=== PATIENT | female | born 1955 | race Caucasian/White ===

== ENCOUNTER 2018-07-13 15:32 | Emergency (ER) | payer MEDICARE ==
[~2018-07-13] VITALS: Ht 157.5 cm; Wt 90.9 kg
[2018-07-13 15:58] LABS: BASOPHILS # (AUTO) 0.1 X10'3 (0-0.2); BASOPHILS % (AUTO) 1.4 % (0-1); EOSINOPHILS # (AUTO) 0.2 X10'3 (0-0.9); EOSINOPHILS % (AUTO) 2.8 % (0-6); HEMATOCRIT 40.7 % (35.0-45.0); HEMOGLOBIN 13.4 g/dl (12.0-16.0); LYMPHOCYTES # (AUTO) 1.5 X10'3 (1.1-4.8); LYMPHOCYTES % (AUTO) 24.1 % (21-51); MEAN CORPUSCULAR HEMOGLOBIN 30.5 PG (27.0-31.0); MEAN CORPUSCULAR VOLUME 92.3 FL (78-98); MEAN PLATELET VOLUME 10.2 FL (7.4-10.4); MONOCYTES # (AUTO) 0.5 X10'3 (0-0.9); MONOCYTES % (AUTO) 7.6 % (2-12); NEUTROPHILS # (AUTO) 3.9 X10'3 (1.8-7.7); NEUTROPHILS % (AUTO) 64.1 % (42-75); PLATELET COUNT 223 X10'3 (140-440); RED CELL DISTRIBUTION WIDTH 14.6 % (11.5-14.5); WHITE BLOOD COUNT 6.1 X10'3 (4.5-11.0)
[2018-07-13 16:06] LABS: INR 1.1 INR; PARTIAL THROMBOPLASTIN TIME 32 SECONDS (22-32); PROTHROMBIN TIME 11.2 SECONDS (9.0-12.0)
[2018-07-13 16:12] LABS: ALANINE AMINOTRANSFERASE 22 U/L (12-78); ALBUMIN 3.8 G/DL (3.4-5.0); ALKALINE PHOSPHATASE 83 IU/L (46-116); ANION GAP 11 (8-16); ASPARTATE AMINO TRANSFERASE 19 U/L (10-37); BILIRUBIN,TOTAL 0.4 MG/DL (0.1-1.0); BLOOD UREA NITROGEN 13 MG/DL (7-18); BUN/CREATININE RATIO 19.1 (6.6-38.0); CALCIUM 9.1 MG/DL (8.5-10.1); CHLORIDE 102 MMOL/L (99-107); CREATININE 0.68 MG/DL (0.40-0.90); GLUCOSE 109 MG/DL (70-104); POTASSIUM 3.6 MMOL/L (3.5-5.1); SODIUM 142 MMOL/L (135-145); TOTAL CARBON DIOXIDE 29.1 MMOL/L (24-32); TOTAL PROTEIN 7.7 G/DL (6.4-8.2); eGFR 87 ML/MIN
[2018-07-13] MEDS ORDERED: fentaNYL/PF 50MCG/1 ML 2ML syringe IV ONE (17:55)
[2018-07-13] MEDS ORDERED: etomidate 2mg/ml inj. IV ONE (17:55)
[2018-07-13] MEDS ORDERED: ondansetron/PF 4mg/2ml inj IV ONE (17:55)
[2018-07-13] MEDS ORDERED: heparin 10,000 units/1 ML INJ IV ONE (17:55)
[2018-07-13 18:10] LABS: D-DIMER 0.27 MG/L FEU (0-0.50)
[2018-07-13 18:35] VITALS: BP 141/73
== END 2018-07-13 19:19 | disposition home or self-care (01) ==
LOC: ER 15:32
DX: I48.91 Unspecified atrial fibrillation (principal); R00.2 Palpitations; I10 Essential (primary) hypertension; Z88.0 Allergy status to penicillin
CPT/HCPCS: 36415; 71046; 80053; 84439; 84443; 84484; 85025; 85379; 85610; 85730; 92960; 93005; 94760; 96374; 99152; 99285; J1644; J2405; J3010; J3490

== ENCOUNTER 2019-07-17 13:25 | Day surgery (SDC) | payer MEDICARE ==
[2019-07-12 13:47] LABS: BASOPHILS % (AUTO) 0.8 % (0-1); EOSINOPHILS # (AUTO) 0.2 X10'3 (0-0.9); EOSINOPHILS % (AUTO) 3.2 % (0-6); HEMATOCRIT 40.1 % (35.0-45.0); HEMOGLOBIN 13.3 g/dl (12.0-16.0); LYMPHOCYTES # (AUTO) 1.4 X10'3 (1.1-4.8); LYMPHOCYTES % (AUTO) 27.8 % (21-51); MEAN CORPUSCULAR HEMOGLOBIN 30.5 PG (27.0-31.0); MEAN CORPUSCULAR HGB CONC 33.1 g/dL (33.0-36.5); MEAN CORPUSCULAR VOLUME 92.1 FL (78-98); MEAN PLATELET VOLUME 9.9 FL (7.4-10.4); MONOCYTES # (AUTO) 0.5 X10'3 (0-0.9); NEUTROPHILS % (AUTO) 59.2 % (42-75); PLATELET COUNT 201 X10'3 (140-440); RED BLOOD COUNT 4.35 X10'6 (4.20-5.60); RED CELL DISTRIBUTION WIDTH 15.3 % (11.5-14.5)
[2019-07-12 13:55] LABS: ALBUMIN 3.7 G/DL (3.4-5.0); ANION GAP 6 (8-16); BLOOD UREA NITROGEN 17 MG/DL (7-18); BUN/CREATININE RATIO 29.3 (6.6-38.0); CALCIUM 9.4 MG/DL (8.5-10.1); CHLORIDE 107 MMOL/L (99-107); CREATININE 0.58 MG/DL (0.40-0.90); GLUCOSE 98 MG/DL (70-104); SODIUM 145 MMOL/L (135-145); TOTAL CARBON DIOXIDE 31.6 MMOL/L (24-32); eGFR > 90 ML/MIN
[2019-07-12 14:01] LABS: PARTIAL THROMBOPLASTIN TIME 29 SECONDS (22-32)
[~2019-07-17] VITALS: Ht 157.5 cm; Wt 90.3 kg
[2019-07-17] VITALS (11 sets, daily range): BP systolic 132–183; BP diastolic 64–104
[2019-07-17] MEDS ORDERED: MIDAZolam 5mg/ml 2ml vial IV ONE (13:45)
[2019-07-17] MEDS ORDERED: normal saline 1000ml 1,000 ML IV SCH (13:45)
[2019-07-17] MEDS ORDERED: fentaNYL/PF 50MCG/1 ML 2ML syringe IV ONE (13:45)
[2019-07-17] MEDS ORDERED: FLEC100T2 PO (14:47)
[2019-07-17] MEDS ORDERED: VIT1CAPS9 PO (14:47)
[2019-07-17] MEDS ORDERED: [UNRECOGNIZED DRUG - OTHER] PO (14:47)
[2019-07-17] MEDS ORDERED: APIX5TAB3 PO (14:47)
[2019-07-17] MEDS ORDERED: METO100T14 PO (14:47)
[2019-07-17] MEDS ORDERED: FURO-150 PO (14:47)
[2019-07-17] MEDS ORDERED: OLME40TA13 PO (14:47)
== END 2019-07-17 18:45 | disposition home or self-care (01) ==
LOC: SSTAY O 13:25
PROVIDERS: ATTEND Internal Medicine Interventional Cardiology
DX: I48.92 Unspecified atrial flutter (principal); I48.0 Paroxysmal atrial fibrillation; G47.33 Obstructive sleep apnea (adult) (pediatric); I10 Essential (primary) hypertension; Z88.0 Allergy status to penicillin; Z88.8 Allergy status to other drugs, medicaments and biological substances; Z91.09 Other allergy status, other than to drugs and biological substances; Z79.899 Other long term (current) drug therapy
CPT/HCPCS: 36415; 80048; 85025; 85610; 85730; 92960; 93005; J2250; J3010; J7030

== ENCOUNTER 2019-07-22 14:18 | Emergency (ER) | payer MEDICARE ==
[~2019-07-22] VITALS: Ht 157.5 cm; Wt 90.0 kg
[~2019-07-22 14:18] MED LIST: APIX5TAB3 PO; FLEC100T2 PO; FURO-150 PO; METO100T14 PO; OLME40TA13 PO; VIT1CAPS9 PO; [UNRECOGNIZED DRUG - OTHER] PO
[2019-07-22 15:03] LABS: BASOPHILS % (AUTO) 0.9 % (0-1); EOSINOPHILS # (AUTO) 0.1 X10'3 (0-0.9); EOSINOPHILS % (AUTO) 2.9 % (0-6); HEMATOCRIT 38.4 % (35.0-45.0); HEMOGLOBIN 12.6 g/dl (12.0-16.0); LYMPHOCYTES % (AUTO) 21.1 % (21-51); MEAN CORPUSCULAR HEMOGLOBIN 30.5 PG (27.0-31.0); MEAN CORPUSCULAR HGB CONC 32.7 g/dL (33.0-36.5); MEAN CORPUSCULAR VOLUME 93.4 FL (78-98); MEAN PLATELET VOLUME 9.8 FL (7.4-10.4); MONOCYTES # (AUTO) 0.6 X10'3 (0-0.9); MONOCYTES % (AUTO) 12.1 % (2-12); NEUTROPHILS # (AUTO) 3.1 X10'3 (1.8-7.7); PLATELET COUNT 178 X10'3 (140-440); RED BLOOD COUNT 4.12 X10'6 (4.20-5.60)
[2019-07-22 15:15] LABS: PARTIAL THROMBOPLASTIN TIME 35 SECONDS (22-32)
[2019-07-22 15:26] LABS: ALANINE AMINOTRANSFERASE 25 U/L (12-78); ALBUMIN 3.6 G/DL (3.4-5.0); ALBUMIN/GLOBULIN RATIO 0.9 (1.1-1.5); ALKALINE PHOSPHATASE 80 IU/L (46-116); ANION GAP 9 (8-16); ASPARTATE AMINO TRANSFERASE 13 U/L (10-37); BILIRUBIN,TOTAL 0.7 MG/DL (0.1-1.0); BLOOD UREA NITROGEN 9 MG/DL (7-18); BUN/CREATININE RATIO 16.7 (6.6-38.0); CALCIUM 8.8 MG/DL (8.5-10.1); CHLORIDE 107 MMOL/L (99-107); CREATININE 0.54 MG/DL (0.40-0.90); GLUCOSE 90 MG/DL (70-104); POTASSIUM 3.9 MMOL/L (3.5-5.1); SODIUM 143 MMOL/L (135-145); TOTAL CARBON DIOXIDE 27.4 MMOL/L (24-32); TOTAL PROTEIN 7.6 G/DL (6.4-8.2); eGFR > 90 ML/MIN
[2019-07-22] MEDS ORDERED: iohexol 350MG/ML 100ml bottle IV ONE (16:31)
--- NOTE | 2019-07-22 18:25 | NUR ---
relieving RN for lunch, Dr Howell at bedside to reevaluate pt
[2019-07-22] MEDS ORDERED: methylPREDNISolone sod succ 125mg/2ml vial IV ONE (18:35)
[2019-07-22 19:09] VITALS: BP 171/100
[2019-07-22] MEDS ORDERED: PRED10TA23 PO (20:26)
[2019-07-22] MEDS ORDERED: DOXY100C2 PO ×2 (20:26→20:27)
[2019-07-22] MEDS ORDERED: PRED20TA PO (20:27)
== END 2019-07-22 20:47 | disposition home or self-care (01) ==
LOC: ER 14:19
DX: R09.02 Hypoxemia (principal); R59.0 Localized enlarged lymph nodes; I48.91 Unspecified atrial fibrillation; I10 Essential (primary) hypertension; Z79.2 Long term (current) use of antibiotics; Z79.899 Other long term (current) drug therapy
CPT/HCPCS: 36415; 71045; 71275; 80053; 84484; 85025; 85610; 85730; 86738; 93005; 96374; 99284; J2930; Q9967

== ENCOUNTER 2019-09-09 08:31 | Inpatient (IN) | payer MEDICARE ==
[~2019-09-09] VITALS: Ht 157.5 cm; Wt 84.0 kg
[2019-09-09] MEDS ORDERED: metoprolol tartrate 1mg/ml inj IV ONE ×3 (09:00→11:40)
[2019-09-09 09:05] LABS: BASOPHILS % (AUTO) 0.8 % (0-1); EOSINOPHILS # (AUTO) 0.1 X10'3 (0-0.9); EOSINOPHILS % (AUTO) 1.4 % (0-6); HEMATOCRIT 41.3 % (35.0-45.0); HEMOGLOBIN 13.3 g/dl (12.0-16.0); LYMPHOCYTES # (AUTO) 1.5 X10'3 (1.1-4.8); LYMPHOCYTES % (AUTO) 24.8 % (21-51); MEAN CORPUSCULAR HEMOGLOBIN 30.3 PG (27.0-31.0); MEAN CORPUSCULAR HGB CONC 32.3 g/dL (33.0-36.5); MEAN CORPUSCULAR VOLUME 93.8 FL (78-98); MEAN PLATELET VOLUME 11.4 FL (7.4-10.4); MONOCYTES # (AUTO) 0.6 X10'3 (0-0.9); MONOCYTES % (AUTO) 9.7 % (2-12); NEUTROPHILS # (AUTO) 3.8 X10'3 (1.8-7.7); NEUTROPHILS % (AUTO) 63.3 % (42-75); PLATELET COUNT 162 X10'3 (140-440); RED CELL DISTRIBUTION WIDTH 16.2 % (11.5-14.5)
[2019-09-09 09:23] LABS: ALANINE AMINOTRANSFERASE 25 U/L (12-78); ALBUMIN 3.9 G/DL (3.4-5.0); ALBUMIN/GLOBULIN RATIO 1.1 (1.1-1.5); ALKALINE PHOSPHATASE 83 IU/L (46-116); ANION GAP 9 (8-16); ASPARTATE AMINO TRANSFERASE 17 U/L (10-37); BILIRUBIN,TOTAL 0.7 MG/DL (0.1-1.0); BLOOD UREA NITROGEN 14 MG/DL (7-18); BUN/CREATININE RATIO 16.9 (6.6-38.0); CALCIUM 9.2 MG/DL (8.5-10.1); CHLORIDE 108 MMOL/L (99-107); CREATININE 0.83 MG/DL (0.40-0.90); GLUCOSE 120 MG/DL (70-104); POTASSIUM 4.3 MMOL/L (3.5-5.1); SODIUM 144 MMOL/L (135-145); TOTAL CARBON DIOXIDE 26.9 MMOL/L (24-32); TOTAL PROTEIN 7.3 G/DL (6.4-8.2); eGFR 69 ML/MIN
[2019-09-09] MEDS ORDERED: diltiazem 5mg/ml 5ml inj. IV ONE (09:25)
[2019-09-09 09:29] LABS: MAGNESIUM 1.9 MG/DL (1.5-2.4)
[2019-09-09 09:35] LABS: LARGE PLATELETS MODERATE; PLATELET ESTIMATE NORMAL
[2019-09-09] MEDS ORDERED: propofol 10mg/ml 20ml vial IV ONE (10:30)
[2019-09-09] MEDS ORDERED: fentaNYL/PF 50MCG/1 ML 2ML syringe IV PRN (10:30)
[2019-09-09] MEDS ORDERED: normal saline 1000ml 1,000 ML IV SCH (10:55)
[2019-09-09] MEDS ORDERED: ondansetron/PF 4mg/2ml inj IV ONE (10:55)
--- NOTE | 2019-09-09 11:09 | NUR ---
Due to failed synchronized cardioversion, Dr. Randolph gaver verbal order to administer lopressor 5 mg IV once now for heart rate control.
[2019-09-09] MEDS ORDERED: mag hydrox/Alum hydrox/simeth 30ml oral suspension PO PRN (11:40)
[2019-09-09] MEDS ORDERED: acetaminophen 325mg tablet PO PRN (11:40)
[2019-09-09] MEDS ORDERED: spironolactone 25 MG tablet PO STA (11:40)
[2019-09-09] MEDS ORDERED: ondansetron/PF 4mg/2ml inj IV PRN (11:40)
[2019-09-09] MEDS ORDERED: magnesium hydroxide 30ml (MOM) UD suspension PO PRN (11:40)
[2019-09-09] MEDS ORDERED: propofol 1000mg/100ml bottle 100 ML IV ONE (11:45)
[2019-09-09] MEDS: metoprolol tartrate 50mg tablet PO SCH ×2 (11:52→19:15)
--- NOTE | 2019-09-09 12:00 | NUR ---
PATIENT REMAINS IN SVT; DR GUAMAN AWARE CALLED PHARMACY FOR ALDACTONE DR DELANEY CHANGED THE PATIENT'S MEDICATIONS LAST WEEK. ON 09/06/19 PATIENT STOPPED FLECAINIDE 100 MG BID AND METOPROLOL 100 MG BID, AND PATIENT STOPPED HER DAILY 40MG LASIX: UNCLEAR WHETHER SHE SHOULD HAV STOPPED THE LASIX. PATIENT STARTED METOPROLOL 50 SR MG Q HS AND ALDACTONE 25 MG Q AM
[2019-09-09] MEDS ORDERED: METO50TA7 PO (12:07)
[2019-09-09] MEDS ORDERED: SPIR25TA PO (12:08)
[2019-09-09] MEDS ORDERED: FURO40TA4 PO (12:11)
[2019-09-09] MEDS ORDERED: ACET-75 PO (12:12)
--- NOTE | 2019-09-09 12:25 | NUR ---
attempting to call report to [facility]E unit for JASE Moreno.
--- NOTE | 2019-09-09 12:32 | NUR ---
Dr Randolph aware patient is still in SVT with a rate of 128 to 152. Phone report called to ACCE unit JASE Herron. Patient going to room 309A
[2019-09-09 12:45] VITALS: BP 135/78
--- NOTE | 2019-09-09 12:45 | NUR ---
Pt arrived on unit at 1245 pm via gurney from ED, able to ambulate by self to bed, gait is steady. A Fib RVR, without chest pain, SOB with exertion
[2019-09-09] MEDS: acetaminophen 325mg tablet PO SCH ×2 (13:00→20:06)
--- NOTE | 2019-09-09 13:38 | NUR ---
Paged hospitalist, med reconciliation done. promotional table spacer PAGER ID: [phone] MESSAGE: ACCE 309 med reconciliation done. Afib RVR, pulses 130-140, failed cardio version ED x3.needs PO Lasix, amio or Cardizem drip.310: stress test done. Holding Cardizem drip running at 10 mls/hr since pulses are in the 70's. Germaine @ [id number]
[2019-09-09] MEDS: furosemide 40mg/4ml inj IV SCH ×2 (14:39→19:15)
--- NOTE | 2019-09-09 17:00 | NUR ---
RN called Dr. Hernández regarding Afib RVR in 140-160, Dr. Hernández advised against amiodarone drip, state "absolutely not", ordered diltizem 60 mg PO TID.
[2019-09-09 18:00] VITALS: BP 135/78
--- NOTE | 2019-09-09 18:00 | NUR ---
Patient in room MED 309. I have received report from Germaine LAGUNA and had the opportunity to ask questions and assume patient care.
--- NOTE | 2019-09-09 18:00 | NUR ---
Problems reprioritized. Patient report given, questions answered & plan of care reviewed with JASE Burgos.
[2019-09-09] MEDS: apixaban 5mg tablet PO SCH (19:15)
--- NOTE | 2019-09-09 19:47 | NUR ---
Valuables-home with sons, specifically morris orr, cc, id
[2019-09-09] MEDS ORDERED: furosemide 10 MG/1 ML 10ml inj IV ONE (20:00)
[2019-09-09] MEDS ORDERED: metoprolol tartrate 50mg tablet PO ONE (20:00)
[2019-09-09] MEDS: diltiazem 30mg tablet PO SCH (20:05)
--- NOTE | 2019-09-09 21:20 | NUR ---
AFIB RVR SUSTAINING 140s SINCE 1529 Was informed on day shift admission for afib rvr sustaining 120's to 140's, humane agent Real and hospitalist Marcus both were informed of patients condition, made appropriate medication changes. No appreciable change in HR; in fact sustaining in 140's up to 160's since 1529. Patient asymptomatic since shift change and RN physical assessment
[2019-09-09 22:00] VITALS: BP 141/54
--- NOTE | 2019-09-09 22:46 | NUR ---
Real Call for Update Called Dr. Noble for update on patients condition, sustaining Afib RVR 140's-150's; Dr. virgen will consult in am, no new med orders.
[2019-09-10 02:00] VITALS: BP_SYST 112; BP_SYST 90; BP_DIAS 56; BP_DIAS 76
[2019-09-10 03:44] LABS: ALBUMIN 3.5 G/DL (3.4-5.0); ANION GAP 10 (8-16); BLOOD UREA NITROGEN 14 MG/DL (7-18); BUN/CREATININE RATIO 19.7 (6.6-38.0); CALCIUM 8.7 MG/DL (8.5-10.1); CHLORIDE 104 MMOL/L (99-107); CREATININE 0.71 MG/DL (0.40-0.90); GLUCOSE 94 MG/DL (70-104); POTASSIUM 3.4 MMOL/L (3.5-5.1); SODIUM 143 MMOL/L (135-145); TOTAL CARBON DIOXIDE 28.8 MMOL/L (24-32); eGFR 82 ML/MIN
[2019-09-10 04:38] LABS: BASOPHILS # (AUTO) 0.1 X10'3 (0-0.2); BASOPHILS % (AUTO) 0.8 % (0-1); EOSINOPHILS # (AUTO) 0.1 X10'3 (0-0.9); EOSINOPHILS % (AUTO) 2.5 % (0-6); HEMOGLOBIN 12.8 g/dl (12.0-16.0); LYMPHOCYTES # (AUTO) 1.8 X10'3 (1.1-4.8); LYMPHOCYTES % (AUTO) 30.5 % (21-51); MEAN CORPUSCULAR HEMOGLOBIN 30.3 PG (27.0-31.0); MEAN CORPUSCULAR HGB CONC 32.7 g/dL (33.0-36.5); MEAN CORPUSCULAR VOLUME 92.7 FL (78-98); MEAN PLATELET VOLUME 11.8 FL (7.4-10.4); MONOCYTES # (AUTO) 0.6 X10'3 (0-0.9); MONOCYTES % (AUTO) 9.5 % (2-12); NEUTROPHILS # (AUTO) 3.4 X10'3 (1.8-7.7); NEUTROPHILS % (AUTO) 56.7 % (42-75); PLATELET COUNT 152 X10'3 (140-440); RED BLOOD COUNT 4.21 X10'6 (4.20-5.60); RED CELL DISTRIBUTION WIDTH 15.6 % (11.5-14.5); WHITE BLOOD COUNT 5.9 X10'3 (4.5-11.0)
--- NOTE | 2019-09-10 05:59 | NUR ---
Problems reprioritized. Patient report given, questions answered & plan of care reviewed with Quiana LAGUNA.
--- NOTE | 2019-09-10 06:10 | NUR ---
Patient in room MED 309. I have received report from Loretta LAGUNA and had the opportunity to ask questions and assume patient care.
[2019-09-10 06:30] VITALS: BP 113/79
[2019-09-10 07:02] LABS: LARGE PLATELETS FEW; PLATELET ESTIMATE NORMAL
[2019-09-10] MEDS: diltiazem 30mg tablet PO SCH (07:49)
[2019-09-10] MEDS: metoprolol tartrate 50mg tablet PO SCH (07:49)
[2019-09-10] MEDS: ZINC PO SCH (08:00)
[2019-09-10] MEDS: acetaminophen 325mg tablet PO SCH ×3 (08:00→20:38)
[2019-09-10] MEDS: VIT E PO SCH (08:00)
[2019-09-10] MEDS: VIT C PO SCH (08:00)
[2019-09-10] MEDS: VIT A PO SCH (08:00)
[2019-09-10] MEDS: COPPER PO SCH (08:00)
[2019-09-10] MEDS ORDERED: potassium Cl 20 mEq SR tablet PO PRN ×2 (08:25)
[2019-09-10] MEDS ORDERED: potassium CL 10mEq/100ml bag 100 ML IV PRN (08:25)
[2019-09-10] MEDS: spironolactone 25 MG tablet PO SCH (08:31)
[2019-09-10] MEDS: apixaban 5mg tablet PO SCH ×2 (08:31→20:42)
[2019-09-10] MEDS: furosemide 40mg/4ml inj IV SCH ×2 (08:31→20:39)
[2019-09-10] MEDS: losartan 50mg tablet PO SCH (08:31)
[2019-09-10 11:00] VITALS: BP 112/71
--- NOTE | 2019-09-10 12:42 | NUR ---
Called Dr. Hernández re: patient's HR sustaining in 140's, received orders to discontinue Cardizem and to change metoprolol tartrate to metoprolol succinate and give first dose now. Noted orders had been placed recently per Mignon VENEGAS. States he doesn't care about the HR right now, there is nothing he can do about it since cardioversion was unsuccessful x 3, he wants to see how she responds to oral medications. States she will need to have ablation to control rate.
[2019-09-10] MEDS: metoprolol succinate 25mg (24-HOUR) SR. Tablet PO SCH ×2 (13:11→20:39)
[2019-09-10 15:00] VITALS: BP 102/64
[2019-09-10 18:00] VITALS: BP 110/80
--- NOTE | 2019-09-10 18:40 | NUR ---
Problems reprioritized. Patient report given, questions answered & plan of care reviewed with Loretta LAGUNA.
[2019-09-10] MEDS ORDERED: metoprolol succinate 25mg (24-HOUR) SR. Tablet PO SCH (20:00)
[2019-09-10 22:00] VITALS: BP 110/80
[2019-09-11 02:00] VITALS: BP 90/56
[2019-09-11 05:26] LABS: EOSINOPHILS # (AUTO) 0.2 X10'3 (0-0.9); EOSINOPHILS % (AUTO) 3.3 % (0-6); LYMPHOCYTES % (AUTO) 36.5 % (21-51); MEAN CORPUSCULAR VOLUME 92.9 FL (78-98); MONOCYTES # (AUTO) 0.6 X10'3 (0-0.9); RED CELL DISTRIBUTION WIDTH 15.8 % (11.5-14.5)
[2019-09-11 05:28] LABS: BASOPHILS % (AUTO) 0.8 % (0-1); HEMATOCRIT 40.5 % (35.0-45.0); HEMOGLOBIN 13.4 g/dl (12.0-16.0); LYMPHOCYTES # (AUTO) 2.2 X10'3 (1.1-4.8); MEAN CORPUSCULAR HEMOGLOBIN 30.8 PG (27.0-31.0); MEAN CORPUSCULAR HGB CONC 33.2 g/dL (33.0-36.5); MEAN PLATELET VOLUME 11.5 FL (7.4-10.4); MONOCYTES % (AUTO) 9.8 % (2-12); NEUTROPHILS # (AUTO) 2.9 X10'3 (1.8-7.7); NEUTROPHILS % (AUTO) 49.6 % (42-75); PLATELET COUNT 169 X10'3 (140-440); RED BLOOD COUNT 4.36 X10'6 (4.20-5.60); WHITE BLOOD COUNT 5.9 X10'3 (4.5-11.0)
[2019-09-11 05:38] LABS: ALBUMIN 3.3 G/DL (3.4-5.0); ANION GAP 6 (8-16); BLOOD UREA NITROGEN 17 MG/DL (7-18); BUN/CREATININE RATIO 20.7 (6.6-38.0); CHLORIDE 106 MMOL/L (99-107); CREATININE 0.82 MG/DL (0.40-0.90); GLUCOSE 93 MG/DL (70-104); MAGNESIUM 1.8 MG/DL (1.5-2.4); POTASSIUM 3.9 MMOL/L (3.5-5.1); SODIUM 146 MMOL/L (135-145); TOTAL CARBON DIOXIDE 33.9 MMOL/L (24-32); eGFR 70 ML/MIN
[2019-09-11 06:00] VITALS: BP 99/72
--- NOTE | 2019-09-11 06:00 | NUR ---
Patient in room MED 309. I have received report from JASE Burgos and had the opportunity to ask questions and assume patient care.
[2019-09-11] MEDS ORDERED: digoxin 250mcg/ml 2ml ampule IV ONE ×2 (06:30→10:30)
[2019-09-11] MEDS: furosemide 40mg/4ml inj IV SCH ×2 (07:42→20:32)
[2019-09-11] MEDS: metoprolol succinate 25mg (24-HOUR) SR. Tablet PO SCH ×2 (07:43→20:29)
[2019-09-11] MEDS: apixaban 5mg tablet PO SCH ×2 (07:43→20:29)
[2019-09-11] MEDS: spironolactone 25 MG tablet PO SCH (07:43)
[2019-09-11] MEDS: losartan 50mg tablet PO SCH (07:44)
[2019-09-11] MEDS: COPPER PO SCH (07:44)
[2019-09-11] MEDS: ZINC PO SCH (07:44)
[2019-09-11] MEDS: VIT C PO SCH (07:44)
[2019-09-11] MEDS: VIT E PO SCH (07:44)
[2019-09-11] MEDS: VIT A PO SCH (07:44)
[2019-09-11] MEDS: acetaminophen 325mg tablet PO SCH ×3 (07:45→20:30)
[2019-09-11 09:19] LABS: LARGE PLATELETS MANY; PLATELET ESTIMATE NORMAL
[2019-09-11] MEDS: amiodarone 200mg tablet PO SCH ×3 (10:30→20:30)
[2019-09-11 11:00] VITALS: BP 90/66
[2019-09-11 15:00] VITALS: BP 95/59
[2019-09-11 18:00] VITALS: BP 114/65
--- NOTE | 2019-09-11 18:05 | NUR ---
received report from JASE Araya
--- NOTE | 2019-09-11 18:27 | NUR ---
Problems reprioritized. Patient report given, questions answered & plan of care reviewed with JASE Velazquez.
[2019-09-11 22:00] VITALS: BP 124/77
[2019-09-12 02:00] VITALS: BP 119/66
[2019-09-12 06:00] VITALS: BP 126/74
--- NOTE | 2019-09-12 06:05 | NUR ---
Patient in room MED 309. I have received report from JASE Velazquez and had the opportunity to ask questions and assume patient care.
[2019-09-12 06:30] LABS: BASOPHILS % (AUTO) 0.5 % (0-1); EOSINOPHILS # (AUTO) 0.2 X10'3 (0-0.9); EOSINOPHILS % (AUTO) 2.8 % (0-6); HEMATOCRIT 43.2 % (35.0-45.0); HEMOGLOBIN 14.4 g/dl (12.0-16.0); LYMPHOCYTES # (AUTO) 1.5 X10'3 (1.1-4.8); LYMPHOCYTES % (AUTO) 19.2 % (21-51); MEAN CORPUSCULAR HEMOGLOBIN 30.6 PG (27.0-31.0); MEAN CORPUSCULAR HGB CONC 33.3 g/dL (33.0-36.5); MEAN CORPUSCULAR VOLUME 91.9 FL (78-98); MEAN PLATELET VOLUME 11.3 FL (7.4-10.4); MONOCYTES # (AUTO) 0.9 X10'3 (0-0.9); MONOCYTES % (AUTO) 11.9 % (2-12); NEUTROPHILS # (AUTO) 5.1 X10'3 (1.8-7.7); NEUTROPHILS % (AUTO) 65.6 % (42-75); PLATELET COUNT 180 X10'3 (140-440); RED BLOOD COUNT 4.71 X10'6 (4.20-5.60); RED CELL DISTRIBUTION WIDTH 15.3 % (11.5-14.5); WHITE BLOOD COUNT 7.8 X10'3 (4.5-11.0)
--- NOTE | 2019-09-12 06:38 | NUR ---
gave report to JASE Salinas and JASE Montez "o"
[2019-09-12] MEDS: apixaban 5mg tablet PO SCH (07:10)
[2019-09-12] MEDS: spironolactone 25 MG tablet PO SCH (07:10)
[2019-09-12] MEDS: losartan 50mg tablet PO SCH (07:10)
[2019-09-12] MEDS: COPPER PO SCH (07:11)
[2019-09-12] MEDS: VIT C PO SCH (07:11)
[2019-09-12] MEDS: VIT E PO SCH (07:11)
[2019-09-12] MEDS: metoprolol succinate 25mg (24-HOUR) SR. Tablet PO SCH (07:11)
[2019-09-12] MEDS: ZINC PO SCH (07:11)
[2019-09-12] MEDS: VIT A PO SCH (07:11)
[2019-09-12] MEDS: acetaminophen 325mg tablet PO SCH (07:12)
[2019-09-12] MEDS: furosemide 40mg/4ml inj IV SCH (07:12)
[2019-09-12 07:14] LABS: ALBUMIN 3.5 G/DL (3.4-5.0); ANION GAP 8 (8-16); BLOOD UREA NITROGEN 13 MG/DL (7-18); BUN/CREATININE RATIO 14.8 (6.6-38.0); CALCIUM 9.2 MG/DL (8.5-10.1); CHLORIDE 101 MMOL/L (99-107); CREATININE 0.88 MG/DL (0.40-0.90); GLUCOSE 91 MG/DL (70-104); MAGNESIUM 1.8 MG/DL (1.5-2.4); POTASSIUM 3.8 MMOL/L (3.5-5.1); SODIUM 141 MMOL/L (135-145); TOTAL CARBON DIOXIDE 32.5 MMOL/L (24-32); eGFR 64 ML/MIN
[2019-09-12 07:55] LABS: LARGE PLATELETS FEW; PLATELET ESTIMATE NORMAL
[2019-09-12] MEDS ORDERED: digoxin 250mcg (0.25mg) tablet PO SCH (08:00)
[2019-09-12] MEDS ORDERED: amiodarone 200mg tablet PO SCH (08:00)
[2019-09-12 11:00] VITALS: BP 91/54
[2019-09-12] MEDS ORDERED: AMIO200T61 PO (11:00)
[2019-09-12] MEDS ORDERED: LAN0.25T PO (11:00)
[2019-09-12] MEDS ORDERED: METO-395 PO (11:00)
--- NOTE | 2019-09-12 12:06 | NUR ---
Patient stable for discharge per MD orders. All discharge instructions reviewed and sent with patient. Prescriptions called in to [facility] pharmacy on [facility] at 1130. All questions answered. lunchroom monitor removed. PIV discontinued, cannula intact, clean, dry dressing in place. Patient to call for follow up appt with Dr. Hernández in 1 week. Pt has appt with Dr. Henry on 09/20/19 for possible ablation. All belongings collected and sent with patient, including life vest. Patient ambulated out of facility with family members and hospital personnel at 1200.
== END 2019-09-12 12:00 | disposition home health service (06) | DRG 308 ==
LOC: ER 08:32 → ED HOLD 11:50 → MED 3N 12:45
PROVIDERS: ADMIT Family Medicine; ATTEND Family Medicine
PROC: 5A2204Z Restoration of Cardiac Rhythm, Single (ICD-10-PCS; principal; 2019-09-09)
DX: I48.19 Other persistent atrial fibrillation (principal); I50.23 Acute on chronic systolic (congestive) heart failure; I48.92 Unspecified atrial flutter; I42.9 Cardiomyopathy, unspecified; I11.0 Hypertensive heart disease with heart failure; G47.30 Sleep apnea, unspecified; K52.9 Noninfective gastroenteritis and colitis, unspecified; Z79.01 Long term (current) use of anticoagulants; Z91.14 Patient's other noncompliance with medication regimen; Z88.0 Allergy status to penicillin; Z79.899 Other long term (current) drug therapy
CPT/HCPCS: 36415; 71045; 80048; 80053; 80162; 83735; 83880; 84484; 85025; 87081; 92960; 93005; 94760; 96374; 96375; 99291; GO378; J1160; J1940; J2704; J3010; J3490; J7030

== ENCOUNTER 2023-11-22 20:33 | Emergency (ER) | payer MEDICARE ==
[~2023-11-22] VITALS: Ht 162.6 cm; Wt 86.4 kg
[~2023-11-22 20:33] MED LIST changes: +ACET-75 PO; +AMI200T PO; -FLEC100T2 PO; -FURO-150 PO; +FURO40TA4 PO; +LAN0.25T PO; +METO-395 PO; -METO100T14 PO; -OLME40TA13 PO; +OLME40TA70 PO; +SPIR25TA PO; -[UNRECOGNIZED DRUG - OTHER] PO
[2023-11-22 20:41] VITALS: TEMP 97.9
[2023-11-22 20:55] LABS: BASOPHILS # (AUTO) 0.1 X10'3 (0-0.2); BASOPHILS % (AUTO) 0.8 % (0-1); EOSINOPHILS # (AUTO) 0.3 X10'3 (0-0.9); EOSINOPHILS % (AUTO) 3.6 % (0-6); HEMATOCRIT 39.2 % (35.0-45.0); HEMOGLOBIN 12.7 g/dl (12.0-16.0); LYMPHOCYTES # (AUTO) 1.7 X10'3 (1.1-4.8); LYMPHOCYTES % (AUTO) 23.3 % (21-51); MEAN CORPUSCULAR HGB CONC 32.3 g/dL (33.0-36.5); MEAN CORPUSCULAR VOLUME 92.9 FL (78-98); MEAN PLATELET VOLUME 9.6 FL (7.4-10.4); MONOCYTES # (AUTO) 0.6 X10'3 (0-0.9); NEUTROPHILS # (AUTO) 4.6 X10'3 (1.8-7.7); NEUTROPHILS % (AUTO) 64.3 % (42-75); PLATELET COUNT 197 X10'3 (140-440); RED BLOOD COUNT 4.22 X10'6 (4.20-5.60); RED CELL DISTRIBUTION WIDTH 14.5 % (11.5-14.5); WHITE BLOOD COUNT 7.1 X10'3 (4.5-11.0)
[2023-11-22 21:10] LABS: ALANINE AMINOTRANSFERASE 16 U/L (12-78); ALBUMIN 3.9 G/DL (3.4-5.0); ALBUMIN/GLOBULIN RATIO 0.9 (1.1-1.5); ALKALINE PHOSPHATASE 76 IU/L (46-116); ANION GAP 5 (8-16); ASPARTATE AMINO TRANSFERASE 11 U/L (10-37); BILIRUBIN,TOTAL 0.3 MG/DL (0.1-1.0); BLOOD UREA NITROGEN 15 MG/DL (7-18); BUN/CREATININE RATIO 21.4 (10.0-20.0); CHLORIDE 104 MMOL/L (99-107); GLUCOSE 127 MG/DL (70-104); POTASSIUM 3.8 MMOL/L (3.5-5.1); SODIUM 143 MMOL/L (135-145); TOTAL CARBON DIOXIDE 34.3 MMOL/L (24-32); TOTAL PROTEIN 8.2 G/DL (6.4-8.2); eCRCL 59 ML/MIN; eGFR 83 ML/MIN
[2023-11-22 21:16] LABS: PRO BRAIN NATRIURETIC PEPTIDE 422 PG/ML (0-125)
[2023-11-22] MEDS ORDERED: OLME40TA18 PO (21:19)
[2023-11-22] MEDS ORDERED: FLUO-167 PO (21:19)
[2023-11-22] MEDS ORDERED: ASPI-611 PO (21:19)
[2023-11-23] MEDS ORDERED: HYDR-3965 PO (00:39)
[2023-11-23 00:48] VITALS: BP 116/76; PULSE 69; RESP 22; O2SAT 96
== END 2023-11-23 00:49 | disposition home or self-care (01) ==
LOC: ER 20:34
DX: S22.31XA Fracture of one rib, right side, initial encounter for closed fracture (principal); I10 Essential (primary) hypertension; R07.89 Other chest pain; Z88.0 Allergy status to penicillin; Z79.1 Long term (current) use of non-steroidal anti-inflammatories (NSAID); Z79.82 Long term (current) use of aspirin; Z79.899 Other long term (current) drug therapy; W19.XXXA Unspecified fall, initial encounter; Y93.89 Activity, other specified; Y92.89 Other specified places as the place of occurrence of the external cause; Y99.8 Other external cause status
CPT/HCPCS: 36415; 71045; 71100; 80053; 83880; 84484; 85025; 93005; 99285